=== PATIENT | female | born 1950 | race Caucasian/White ===

== ENCOUNTER 2023-12-01 09:45 | Emergency (ER) | payer MEDICARE, OTHER, SELFPAY ==
--- NOTE | ~2023-12-01 | XR_ITS ---
EXAMINATION: XR CHEST, ONE VIEW XR ABDOMEN KUB CLINICAL INFORMATION: Shunt evaluation. COMPARISON: None available. TECHNIQUE: AP view of the chest and AP views of the abdomen. FINDINGS: Right-sided ventriculoperitoneal shunt terminating in the mid abdomen. No evidence of shunt disruption. Right upper quadrant surgical clips. No airspace consolidation. No pleural effusion or pneumothorax. Unremarkable cardiomediastinal silhouette. Nonobstructive bowel gas pattern. Moderate stool burden. No abnormal soft tissue calcification. Mild shaped scoliotic curvature of the thoracolumbar spine. XR/XR chest 1V IMPRESSION: 1. Right-sided ventriculoperitoneal shunt without evidence of disruption. 2. No acute cardiopulmonary findings. 3. Moderate stool burden.
--- NOTE | ~2023-12-01 | CT_ITS ---
EXAMINATION: CT HEAD WITHOUT CONTRAST CLINICAL INFORMATION: Shunt adjusted one week ago. Aphasia. Numbness left hand. COMPARISON: None available. TECHNIQUE: Contiguous axial imaging was performed from the skull base to vertex without intravenous administration of contrast. This CT examination was performed using dose optimization techniques as appropriate, variously including the following: *Automated exposure control *Adjustment of mA and/or kV according to patient size (this includes techniques or standardized protocols for targeted exams where dose is matched to indication/reason for exam; i.e. extremities or head) *Use of iterative reconstruction technique DLP: 645 mGy-cm FINDINGS: There is no evidence of an extra-axial collection. There is no evidence of intra or extra-axial hemorrhage. There is a right-sided shunt coursing through the right temporal occipital parietal region through the posterior right lateral ventricle near the posterior horn with the tip in the right thalamus. The ventricles and extra-axial CSF spaces are prominent. No comparison exams available to see if size of ventricles is changed. There is mild nonspecific periventricular white matter disease. No mass, mass effect or infarct. Review of bone windows is normal. No skull fracture. Visualized paranasal sinuses, mastoid air cells and middle ears are clear. CT/CT head/brain wo IV con IMPRESSION: Tip of [employer] shunt catheter projects over the right thalamus. Prominent ventricles and extra-axial CSF spaces. No comparison exams to evaluate size of ventricles available. Nonspecific periventricular white matter disease.
--- NOTE | ~2023-12-01 | XR_ITS ---
EXAMINATION: XR CHEST, ONE VIEW XR ABDOMEN KUB CLINICAL INFORMATION: Shunt evaluation. COMPARISON: None available. TECHNIQUE: AP view of the chest and AP views of the abdomen. FINDINGS: Right-sided ventriculoperitoneal shunt terminating in the mid abdomen. No evidence of shunt disruption. Right upper quadrant surgical clips. No airspace consolidation. No pleural effusion or pneumothorax. Unremarkable cardiomediastinal silhouette. Nonobstructive bowel gas pattern. Moderate stool burden. No abnormal soft tissue calcification. Mild shaped scoliotic curvature of the thoracolumbar spine. XR/XR KUB IMPRESSION: 1. Right-sided ventriculoperitoneal shunt without evidence of disruption. 2. No acute cardiopulmonary findings. 3. Moderate stool burden.
[2023-12-01 09:50] VITALS: BP 148/84; PULSE 77; RESP 17; TEMP 36.1; O2SAT 98; BMI 23.5
--- NOTE | 2023-12-01 09:56 | ECG_ITS ---
Test Reason : stroke like symptoms Blood Pressure : / mmHG Vent. Rate : 078 BPM Atrial Rate : 078 BPM P-R Int : 190 ms QRS Dur : 076 ms QT Int : 356 ms P-R-T Axes : 068 006 050 degrees QTc Int : 405 ms Normal sinus rhythm Normal ECG When compared with ECG of 27-JAN-2018 15:30, No significant change was found Referred By: Karlene Shields Electronically Signed By:YAS RAMIREZ
--- NOTE | 2023-12-01 10:27 | ED_ITS ---
HPI - Neuro Symptoms/Deficit General Chief Complaint: Stroke Stated Complaint: quest of stroke Time Seen by Provider: 12/01/23 09:57 Source: patient and family Mode of arrival: ambulatory Limitations: no limitations History of Present Illness HPI Narrative: 73 yo female with PMH of NPH s/p shunt placed at [facility] by Dr. Gonzalez back in 2022 just revised 1 week ago now 6 days of aphasia, difficulty walking dizziness, tinnitus, on and off numbness to L hand. She denies falls fevers urinary symptoms. She states I should never had it revised. They called [facility] and were told to go to [facility] for possible stroke. The patient denies headache to me. No seizure activity reported at home. Onset (ago): day(s) (6) Timing confirmed by: family member Location: speech and altered History of same: No Severity: moderate Quality: other Relieving factors: none Exacerbating factors: none Context: sudden onset On Anticoagulants: No Associated symptoms: confusion Treatments Prior to Arrival: none Related Data Allergies Allergy/AdvReac Type Severity Reaction Status Date / Time ciprofloxacin [From CIPRO] Allergy Unknown UNKNOWN Verified 12/01/23 09:51 Review of Systems 2 Review of Systems: Constitutional : No Fever, No Chills, No Fatigue ENT/Mouth : No sore throat, No Rhinorrhea, pos tinnitus Eyes: No Eye Pain, No Swelling, No Redness Cardiovascular : No Chest Pain, No SOB, No Dyspnea on Exertion Respiratory : No Cough, No Sputum Gastrointestinal : No Nausea, No Vomiting, No Diarrhea, No abdominal Pain Genitourinary : No Dysuria, No Urinary Frequency, No Hematuria, Musculoskeletal : No joint pain, No Myalgias, No Joint Swelling Skin : No Skin Lesions, No rash Neuro : pos Weakness, pos Numbness, No Dizziness, no Headache Psych : No Anxiety/Panic, No Depression Heme/Lymph: No Bruising, No Bleeding,No Lymphadenopathy Endocrine : No Polyuria, No Polydipsia All other systems reviewed and are negative [facility] Past Medical History Attestation statement: The following information was validated with the patient. Source: old records reviewed Medical History NPH (normal pressure hydrocephalus) Social History Social History (Updated 12/01/23 @ 10:45 by Karlene Shields DO) Patient Tobacco Use Status: Never used Tobacco Smoked in Last 30 Days: No Use of substances other than those prescribed or required for medical reasons: No Advance Directives: Yes Advance Directives Information Provided: Yes Advance Directives on File: No Physical Exam 2 Vital Signs: Vital Signs: Last Vital Signs Temp 97.9 F 12/01/23 11:29 Pulse 74 12/01/23 11:29 Resp 14 12/01/23 11:29 BP 131/70 12/01/23 11:29 Pulse Ox 97 12/01/23 11:29 O2 Del Method Room Air 12/01/23 11:29 BMI result Body Mass Index 23.5 Appearance: Alert. Oriented X3 initially at times slow to respond needs some prompting. No acute distress. Eyes: Pupils equal, round and reactive to light. ENT: Pharynx normal. Neck: Normal inspection. Neck supple. CVS: Normal heart rate and rhythm. Pulses normal. Respiratory: No respiratory distress. Breath sounds normal. Abdomen: Soft and nontender. Skin: Skin warm and dry. Normal skin color. Normal skin turgor. Extremities: No lower extremity edema. No calf ttp Neuro: Oriented X 3. No motor deficit. No sensory deficit. slight shuffling gait seems unsteady, CN 2-12 intact, intermittent mild aphasia, at times needs prompting but mild aware she is having a hard time answering questions quickly apologizes Course Course Course Narrative: call to radiology in regards to CT head 1045am Reevaluation(s) Reevaluation #1: message sent out to [facility] 1151am Reevaluation #2: spoke to Dr. Gonzalez 1221pm states he thinks the CT scan tip position is stable - he thinks the drainage settings are concerning. no breakage in line. Send patient to the ED waiting back for transfer line. Medications Administered Generic Name Dose Route Start Last Admin Trade Name Freq PRN Reason Stop Dose Admin Sodium Chloride 1,000 mls @ 100 mls/hr 12/01/23 11:30 12/01/23 11:26 Ns IVCONT 100 mls/hr .Q10H PRIYANKA Administration Discontinued Medications Generic Name Dose Route Start Last Admin Trade Name Freq PRN Reason Stop Dose Admin Lorazepam 0.5 mg 12/01/23 12:36 12/01/23 12:50 Lorazepam 0.5 Mg Tablet PO 12/01/23 12:37 0.5 mg ONCE ONE Administration Medical Decision Making Medical Decision Making [facility] Narrative: 73 yo female PMH of NPH s/p shunt done in 2022 reports revision 1 week ago - states it was turned down and 1 day later progressive dizziness, tinnitus, gait issues, confusion, aphasia at this time no focal deficits given timeline out of window for any treatment I have ordered CT head and xrays of chest and abdomen for kinking of shunt. I plan on talking to her provider at [facility] regarding her symptoms. Differential Diagnosis Differential Diagnoses: The differential diagnosis associated with the presentation includes CVA, shunt malfunction Admission/Observation Consideration of admission/observation: Escalation of care including admission/observation considered patient is going to present to [facility] ED on their own has been on 6 days does not need to go via EMS Consult Healthcare Provider Management of the patient was discussed with: [employer] Supervisor Lab Data [facility] Lab Attestation statement: I reviewed the patient's lab results. 12/01/23 10:31 12/01/23 10:31 Labs: Lab Results 12/01/23 12/01/23 12/01/23 Range/Units 10:31 10:32 10:38 WBC 4.9 (4.8-10.8) X10*3/uL RBC 3.58 L (4.20-5.50) X10*6/uL Hgb 12.0 (12.0-16.0) g/dl Hct 35.2 L (37.0-47.0) % MCV 98.3 H (80.0-98.0) fL MCH 33.5 H (27.0-33.0) pg MCHC 34.1 (31.0-35.0) g/dl RDW 13.0 (11.0-16.0) % Plt Count 261 (160-400) X10*3/uL MPV 8.5 L (9.4-12.3) fL Immature Gran % (Auto) 0.2 (0.0-0.4) % Neut % (Auto) 55.3 (45-73) % Lymph % (Auto) 30.9 (20-40) % Garrard % (Auto) 10.7 (2-11) % Eos % (Auto) 1.0 (0-4) % Baso % (Auto) 1.9 (0-2) % Lymph # (Auto) 1.5 (1.2-4.9) X10*3/uL Garrard # (Auto) 0.5 (0.1-1.2) X10*3/uL Eos # (Auto) 0.1 (0.0-0.4) X10*3/uL Baso # (Auto) 0.1 (0.0-0.2) X10*3/uL Abs Immat Gran (auto) 0.01 (0.00-0.03) X10*3/uL Absolute Neuts (auto) 2.7 (2.0-8.3) x10*3/uL Absolute Nucleated RBC 0.000 (0.0-0.012) X10*3/uL Nucleated RBC % (auto) 0.0 (0.0-0.2) /100WBC PT 10.4 L (11.1-13.3) SEC INR 0.9 (0.9-1.1) VBG pH 7.40 (7.32-7.43) VBG pCO2 40 mmHg VBG pO2 49 mmHg VBG HCO3 25 (22-26) mmol/L VBG O2 Saturation 79.0 % VBG Base Excess 0.7 mmol/L Sodium 137 (135-145) mmol/L Potassium 4.1 (3.3-5.1) mmol/L Chloride 103 (96-108) mmol/L Carbon Dioxide 23 (22-29) mmol/L Anion Gap 15 (12-20) BUN 12 (9-16) mg/dL Creatinine 0.84 (0.5-1.4) mg/dL Estim Creat Clear Calc 58.0 Estimated GFR > 60 Random Glucose 101 (60-115) mg/dL Lactic Acid 1.5 (0.5-2.0) mmol/L Calcium 10.9 H (8.4-10.2) mg/dL Magnesium 2.0 (1.6-2.6) mg/dL Total Bilirubin 0.3 (0.0-1.0) mg/dL Direct Bilirubin 0.1 (0.0-0.5) mg/dL AST 15 (5-31) U/L ALT 12 (0-31) U/L Alkaline Phosphatase 29 L (39-117) U/L Ammonia (13-55) umol/L Troponin I High Sens < 2.7 (<3.5-17.0) ng/L C-Reactive Protein 0.16 (< or = 0.50) mg/dL B-Natriuretic Peptide 11 (<100) pg/mL Total Protein 7.7 (6.5-8.0) g/dL Albumin 4.8 (3.5-5.0) g/dL Lipase 35 (8-78) U/L TSH 1.48 (0.32-4.0) uIU/mL Urine Color Urine Appearance Urine pH (5.0-9.0) Ur Specific Gordo (1.005-1.025) Urine Protein (Neg-Trace) mg/dL Urine Glucose (UA) (Negative) mg/dL Urine Ketones (Negative) mg/dL Urine Blood (Negative) Urine Nitrite (Negative) Ur Leukocyte Esterase (Negative) 12/01/23 Range/Units 11:22 WBC (4.8-10.8) X10*3/uL RBC (4.20-5.50) X10*6/uL Hgb (12.0-16.0) g/dl Hct (37.0-47.0) % MCV (80.0-98.0) fL MCH (27.0-33.0) pg MCHC (31.0-35.0) g/dl RDW (11.0-16.0) % Plt Count (160-400) X10*3/uL MPV (9.4-12.3) fL Immature Gran % (Auto) (0.0-0.4) % Neut % (Auto) (45-73) % Lymph % (Auto) (20-40) % Garrard % (Auto) (2-11) % Eos % (Auto) (0-4) % Baso % (Auto) (0-2) % Lymph # (Auto) (1.2-4.9) X10*3/uL Garrard # (Auto) (0.1-1.2) X10*3/uL Eos # (Auto) (0.0-0.4) X10*3/uL Baso # (Auto) (0.0-0.2) X10*3/uL Abs Immat Gran (auto) (0.00-0.03) X10*3/uL Absolute Neuts (auto) (2.0-8.3) x10*3/uL Absolute Nucleated RBC (0.0-0.012) X10*3/uL Nucleated RBC % (auto) (0.0-0.2) /100WBC PT (11.1-13.3) SEC INR (0.9-1.1) VBG pH (7.32-7.43) VBG pCO2 mmHg VBG pO2 mmHg VBG HCO3 (22-26) mmol/L VBG O2 Saturation % VBG Base Excess mmol/L Sodium (135-145) mmol/L Potassium (3.3-5.1) mmol/L Chloride (96-108) mmol/L Carbon Dioxide (22-29) mmol/L Anion Gap (12-20) BUN (9-16) mg/dL Creatinine (0.5-1.4) mg/dL Estim Creat Clear Calc Estimated GFR Random Glucose (60-115) mg/dL Lactic Acid (0.5-2.0) mmol/L Calcium (8.4-10.2) mg/dL Magnesium (1.6-2.6) mg/dL Total Bilirubin (0.0-1.0) mg/dL Direct Bilirubin (0.0-0.5) mg/dL AST (5-31) U/L ALT (0-31) U/L Alkaline Phosphatase (39-117) U/L Ammonia 15 (13-55) umol/L Troponin I High Sens (<3.5-17.0) ng/L C-Reactive Protein (< or = 0.50) mg/dL B-Natriuretic Peptide (<100) pg/mL Total Protein (6.5-8.0) g/dL Albumin (3.5-5.0) g/dL Lipase (8-78) U/L TSH (0.32-4.0) uIU/mL Urine Color Yellow Urine Appearance Clear Urine pH 6.5 (5.0-9.0) Ur Specific Gordo 1.010 (1.005-1.025) Urine Protein Negative (Neg-Trace) mg/dL Urine Glucose (UA) Negative (Negative) mg/dL Urine Ketones Negative (Negative) mg/dL Urine Blood Negative (Negative) Urine Nitrite Negative (Negative) Ur Leukocyte Esterase Negative (Negative) Independent Interpretation I performed an independent interpretation of an: EKG, Plain X-Ray (no shunt malfunction) and CT Scan (no ICH) Interpretation: Rate: 78 Rhythm: NSR [place]: normal Normal P waves. Normal DAMIEN. Normal QRS complex. ST T wave : normal no WILLOW qTC: 405 prior studies: no acute ischemia The study has been interpreted contemporaneously by me. . Radiology Impression Discussion of test interpretation with radiology: I have reviewed the radiologist's reading. Independent Historian Clinical information obtained from an independent historian. History obtained from or confirmed by: Other ( and daughter) External Record Review External record reviewed: Outpatient record NIH Stroke Scale Internal: Initial- Upon Arrival Level of Consciousness: Alert Level of Consciousness Questions: Answers both questions correctly Level of Consciousness Commands: Performs both tasks correctly Best Gaze: Normal Visual: No visual loss Facial Palsy: Normal Motor Arm (Right): No drift Motor Arm (Left): No drift Motor Leg (Right): No drift Motor Leg (Left): No drift Limb Ataxia: Absent Sensory: Normal Best Language: Mild to moderate aphasia Dysarthia: Normal Extinction and Inattention: No abnormality Score: 1 Discharge Plan Discharge Clinical Impression: Aphasia Patient Disposition: [facility] Transfer Details: [facility] Instructions: Aphasia (DC) Additional Instructions: please present to the [facility] ER they are expecting you - your Neurosurgeon has been spoken to. You should expect a MRI and further testing of your shunt. Print Language: Syriac
[2023-12-01 10:41] LABS: MANUAL DIFF FLAG NO
[2023-12-01 10:44] LABS: Venous Blood Gas Refer to POC result
[2023-12-01 10:44] LABS: VBG Base Excess 0.7 mmol/L; VBG HCO3 25 mmol/L (22-26); VBG pCO2 40 mmHg; VBG pO2 49 mmHg
--- NOTE | 2023-12-01 10:45 | MHC.STROKE ---
Met with patient and family Arrived to ED with c/o question stroke Pt reports symptoms x 6 days. Hx of shunt secondary to NPH. Shunt was placed in April at [facility] Approximately one week ago, states that that shunt was adjusted. Symptoms started after the adjustment. Pt c/o ringing in her ears R>L. Pt also reports difficulty word finding and intermittent tingling to the left hand Pt had CT completed along with xray Dr. Shields explained to patient and family in detail the plan of care. Awaiting official CT read and will consult her neuro providers at [facility]. Pt is awake, alert and oriented. Hand grasp equal, strong. No palmar drift noted. Tongue midline. No slurred speech appreciated. Pt has difficulty answering questions due to word finding difficulties. Pt apologizes and says I just can't find the right word Pt becomes tearful when she has difficulty articulating. Will continue to assist as needed.
[2023-12-01 10:46] LABS: Basophils Absolute Auto 0.1 X10*3/uL (0.0-0.2); Basophils Percent Auto 1.9 % (0-2); Eosinophils Absolute Auto 0.1 X10*3/uL (0.0-0.4); Hematocrit 35.2 % (37.0-47.0); Imm Gran Abs Auto 0.01 X10*3/uL (0.00-0.03); Imm Gran Pct Auto 0.2 % (0.0-0.4); Lymphocytes Absolute Auto 1.5 X10*3/uL (1.2-4.9); Lymphocytes Percent Auto 30.9 % (20-40); Mean Corpuscular HGB Conc 34.1 g/dl (31.0-35.0); Mean Corpuscular Hemoglobin 33.5 pg (27.0-33.0); Mean Corpuscular Volume 98.3 fL (80.0-98.0); Mean Platelet Volume 8.5 fL (9.4-12.3); Monocytes Absolute Auto 0.5 X10*3/uL (0.1-1.2); Monocytes Percent Auto 10.7 % (2-11); Neutrophils Absolute Auto 2.7 x10*3/uL (2.0-8.3); Neutrophils Percent Auto 55.3 % (45-73); Platelet Count 261 X10*3/uL (160-400); Red Blood Count 3.58 X10*6/uL (4.20-5.50); White Blood Count 4.9 X10*3/uL (4.8-10.8)
[2023-12-01 10:50] LABS: INTERNATIONAL NORM RATIO 0.9 (0.9-1.1); Prothrombin Time 10.4 SEC (11.1-13.3)
[2023-12-01 10:54] LABS: Lactic Acid 1.5 mmol/L (0.5-2.0)
[2023-12-01 10:58] LABS: Alanine Aminotransferase 12 U/L (0-31); Albumin Level 4.8 g/dL (3.5-5.0); Alkaline Phosphatase 29 U/L (39-117); Anion Gap 15 (12-20); Aspartate Amino Transferase 15 U/L (5-31); Bilirubin Direct 0.1 mg/dL (0.0-0.5); Bilirubin Total 0.3 mg/dL (0.0-1.0); Blood Urea Nitrogen 12 mg/dL (9-16); C Reactive Protein 0.16 mg/dL (< or = 0.50); Calcium 10.9 mg/dL (8.4-10.2); Carbon Dioxide 23 mmol/L (22-29); Chloride 103 mmol/L (96-108); Estimated Glomerular Filt Rate > 60; Glucose Random 101 mg/dL (60-115); Lipase 35 U/L (8-78); Potassium 4.1 mmol/L (3.3-5.1); Sodium 137 mmol/L (135-145); Total Protein 7.7 g/dL (6.5-8.0)
[2023-12-01 11:03] LABS: B Type Natriuretic Peptide 11 pg/mL (<100)
[2023-12-01 11:06] LABS: Troponin-I High Sensitivity < 2.7 ng/L (<3.5-17.0)
[2023-12-01 11:19] LABS: TSH reflex Free T4 1.48 uIU/mL (0.32-4.0)
[2023-12-01] MEDS: 0.9 % Sodium Chloride 1,000 ML 100 ML IVCONT (11:26)
--- NOTE | 2023-12-01 11:27 | PC.NURSE ---
urine/labs obtained/sent to lab. IVF administered per provider order. CT results still pending at this time. family bedside. plan of care ongoing. call henderson placed within reach.
[2023-12-01 11:29] VITALS: BP 131/70; PULSE 74; RESP 14; TEMP 36.6; O2SAT 97
[2023-12-01 11:31] LABS: Appearance Urine Clear; Color Urine Yellow; Glucose Urine UA Negative (Negative); Leukocyte Esterase Urine Negative (Negative); Nitrite Urine Negative (Negative); PH 6.5 (5.0-9.0); Urine Blood Negative (Negative); Urine Ketones Negative (Negative); Urine Protein Negative (Neg-Trace)
[2023-12-01 11:37] LABS: Ammonia 15 umol/L (13-55)
--- NOTE | 2023-12-01 12:31 | PC.NURSE ---
pt/family members spoke w/ ED provider/aware of plan of care at this time.
[2023-12-01] MEDS: LORazepam 0.5 MG TABLET PO (12:50)
--- NOTE | 2023-12-01 12:50 | PC.NURSE ---
pt verbalizing increased anxiety at this time. pt states hx of crohn's and when she gets anxious - sx worsen. pt medicated w/ one time dose of ativan. effectiveness pending.
--- NOTE | 2023-12-01 13:14 | MHC.STROKE ---
Spoke with patient and family with Dr. Shields regarding results of CT scan and conversation with neurology at [facility]. Plan is to transfer to their facility. Pt/family aware and agreeable to plan. Currently awaiting a call back from the transfer line. Pt requesting Ativan for increased anxiety. Dr. Shields aware Requested a disc be made by Radiology for the patient to bring to [facility]
[2023-12-01 13:40] VITALS: BP 131/70; PULSE 74; RESP 14; TEMP 36.6; O2SAT 97
== END 2023-12-01 13:41 | disposition short-term general hospital (02) ==
PROVIDERS: Emergency Provider Emergency Medicine; PCP Nurse Practitioner Adult Health
DX: R47.01 Aphasia (principal); G91.2 (Idiopathic) normal pressure hydrocephalus; Z98.2 Presence of cerebrospinal fluid drainage device
CPT/HCPCS: 36415; 70450; 71045; 74018; 80048; 80076; 81003; 82140; 82803; 83605; 83690; 83735; 83880; 84443; 84484; 85025; 85610; 86140; 87040; 93005; 99285

== ENCOUNTER → 2023-12-01 09:56 | Outpatient (BNV) | payer MEDICARE, OTHER, SELFPAY | PROVIDERS: Emergency Provider Emergency Medicine; PCP Nurse Practitioner Adult Health; Visit Provider Internal Medicine | DX: I63.9 Cerebral infarction, unspecified (principal) | CPT/HCPCS: 93010 ==